=== PATIENT | male | born 1940 | race Caucasian/White ===

== ENCOUNTER 2017-06-23 06:50 | Outpatient (CLI) | payer MEDICARE | END 2017-06-23 06:51 | disposition home or self-care (01) | LOC: BICULT 06:50 | PROVIDERS: ATTEND Internal Medicine Gastroenterology | DX: R11.2 Nausea with vomiting, unspecified (principal) | CPT/HCPCS: 76700 ==

== ENCOUNTER 2017-07-12 07:37 | Outpatient (CLI) | payer MEDICARE ==
[2017-07-12] MEDS ORDERED: ISOVUE-370 76%-LOCM 1 ML ONE (14:46)
== END 2017-07-12 07:38 | disposition home or self-care (01) ==
LOC: BICCT 07:37
PROVIDERS: ATTEND Internal Medicine Gastroenterology
DX: R05 Cough (principal); R11.2 Nausea with vomiting, unspecified; R63.4 Abnormal weight loss; R91.8 Other nonspecific abnormal finding of lung field; D73.89 Other diseases of spleen
CPT/HCPCS: 71260; 74177

== ENCOUNTER 2017-08-03 08:30 | Outpatient (CLI) | payer MEDICARE ==
--- NOTE | 2017-08-05 16:44 | RAD ---
MODIFIED BARIUM SWALLOW IN THE PRESENCE OF SPEECH THERAPIST: 08/05/17 History: Feeding difficulties.Dysphagia FINDINGS/IMPRESSION: Flash laryngeal penetration is seen with thin liquids. No betsey aspiration is identified. No persiste nt pooling of contrast is seen in the vallecula or the piriform sinuses. POS: [facility]
== END 2017-08-03 08:31 | disposition home or self-care (01) ==
PROVIDERS: ATTEND Internal Medicine
DX: J69.0 Pneumonitis due to inhalation of food and vomit (principal); R13.12 Dysphagia, oropharyngeal phase; R63.3 Feeding difficulties; I63.8 Other cerebral infarction; K21.9 Gastro-esophageal reflux disease without esophagitis
CPT/HCPCS: 74230; G8996-GN-CI; G8997-GN-CI; G8998-GN-CI

== ENCOUNTER → 2017-09-19 | Outpatient (CLI) | payer MEDICARE | LOC: SLEEPLAB 10:49 | PROVIDERS: ATTEND Internal Medicine | DX: G47.33 Obstructive sleep apnea (adult) (pediatric) (principal); R09.02 Hypoxemia; K21.9 Gastro-esophageal reflux disease without esophagitis; E66.9 Obesity, unspecified; R35.1 Nocturia; I63.9 Cerebral infarction, unspecified; I10 Essential (primary) hypertension; G45.9 Transient cerebral ischemic attack, unspecified; Z68.29 Body mass index [BMI] 29.0-29.9, adult | CPT/HCPCS: 95806 ==

== ENCOUNTER 2018-03-07 09:22 | Inpatient (IN) | payer MEDICARE ==
[2018-03-07] MEDS ORDERED: Dexamethasone 10 MG/ML VIAL ONE (09:57)
[2018-03-07] MEDS ORDERED: Ondansetron PF 4 MG/2 ML Vial ONE (09:57)
[2018-03-07] MEDS ORDERED: Cefepime 2 GM in Sodium Chloride 0.9% 100 ML IVPB SCH (10:00)
[2018-03-07 10:13] LABS: Hemoglobin 13.9 g/dL (14.0-18.0); Mean Corpuscular HGB CONC 33.3 g/dL (32.0-36.0); Mean Corpuscular Hemoglobin 30.4 pg (27.0-31.0); Mean Corpuscular Volume 91.2 fL (78.0-98.0); Mean Platelet Volume 7.6 fL (7.4-10.4); Platelet Count 186 thou/uL (130-400); RBC Distribution Width 13.5 % (11.5-14.5); Red Blood Cell (RBC) Count 4.56 mill/uL (4.70-6.10); White Blood Cell (WBC) Count 11.1 thou/uL (4.8-10.8)
--- NOTE | 2018-03-07 10:20 | RAD ---
FRONTAL RADIOGRAPH CHEST: 03/07/2018 HISTORY: Dyspnea. Fall. Altered mental status. COMPARISON: 06/28/2016 FINDINGS: There is a focal area of density within the medial aspect of the right lung base. This is new when c ompared to prior CT examination performed 07/12/2017 and prior chest radiograph performed 06/28/2016. This abnormality measures at least 6 cm in greatest dimension. There is no pneumothorax or pleural fluid. IMPRESSION: 1. Hazy, focal, 6 cm area of abnormal increased pulmonary parenchymal opacity in the medial right todd ng base. In the proper clinical setting, this is most consistent with infectious pneumonitis or aspi ration; however, an underlying mass lesion cannot be fully excluded. Clinical correlation is thus es sential. Recommend short-term follow-up imaging of the chest, following treatment, to document resol ution. If this opacity persists despite treatment, CT examination of the chest would be advised. CODE T
[2018-03-07 10:30] LABS: ALT (SGPT) 26 U/L (8-55); AST (SGOT) 36 U/L (5-34); Albumin 3.8 g/dL (3.4-4.8); Alkaline Phosphatase 57 U/L (40-150); Anion Gap 17 mmol/L (10-20); BUN (Urea Nitrogen) 18 mg/dL (8.4-25.7); Bilirubin, Total 1.1 mg/dL (0.2-1.2); CK (CPK) 379 U/L (30-200); Calc. Creatinine Clearance 0 mL/min (70-130); Calcium 9.2 mg/dL (7.8-10.44); Carbon Dioxide 18 mmol/L (23-31); Chloride 107 mmol/L (98-107); Estimated GFR-MDRD 51; Globulin 3.4 g/dL (2.4-3.5); Glucose 154 mg/dL (83-110); Potassium 4.1 mmol/L (3.5-5.1); Protein, Total 7.2 g/dL (5.8-8.1); Sodium 138 mmol/L (136-145)
[2018-03-07 10:46] LABS: Band 33 % (5-11); Lymphocytes 7 % (21-51); MDiff Complete? YES; Monocytes 4 % (0-10); Neutrophil 55 % (42-75); PLT Morphology Comment Appears Adequate; Reactive Lymphocytes 1 % (0-10); Toxic Granulation SLIGHT
--- NOTE | 2018-03-07 10:56 | PDOC.FPRHP ---
- History of Present Illness Chief Complaint: malaise History of Present Illness: 77yo m with pmh of htn presenting from home on encouragement from his family for evaluation of AMS. Family member reported finding pt on the floor of the hallway and that he was unable to get himself up out of bed. He is unsure of if the pt fell or struck his head. Pt did not report this part of hpi. Pt only complains of increasing malaise and cough over the last 3 weeks. Reports he went hunting on Tuesday despite feeling bad but then decided to go to [facility] urgent care on tuesday where he was told it was asthma. Pt did not improve with steroid shot. Pt denies fever or chills, denies cp. ED Course: Pt sirs positive on presentation. Given 2.5L IVF in ER and s/p vanc and cefepime. - Allergies/Adverse Reactions Allergies Allergy/AdvReac Type Severity Reaction Status Date / Time No Known Allergies Allergy Unverified 03/07/18 09:56 - History PMHx: HTN, HLD, CAD, testicular cancer s/p orchiectomy and radiation years ago PSHx: Orchiectomy, appendectomy FHx: non contributory Social: Denies Tobacco and drugs. Endorses social drinking. - Review of Systems General: reports: fatigue. denies: fever/chills Eyes: denies: eye pain, vision changes ENT: reports: nasal congestion. denies: rhinorrhea Respiratory: reports: cough, congestion Cardiovascular: denies: chest pain, palpitation Gastrointestinal: denies: nausea, vomiting Genitourinary: denies: dysuria, discharge Skin: denies: rashes, lesions Musculoskeletal: denies: pain, tenderness Neurological: reports: weakness. denies: numbness Psychological: denies: anxiety, depression - Vital signs BP: [135/61] HR: [108] RR: [29] Tmax: [103.1] Pox: [98]% on [ra] - Physical Exam Constitutional: NAD, awake, alert and oriented HEENT: EOMI, conjunctiva clear, grossly normal vision, grossly normal hearing, normal nasal mucosa, MMM Neck: supple, trachea midline Chest: no-tender to palpation Heart: normal S1/S2, other (tachycardic) -Heart: warm extremeties Lungs: no respiratory distress, other (diffuse expiratory wheezing) Abdomen: soft, non-tender, bowel sounds present Musculoskeletal: normal structure, normal tone Neurological: no focal deficit, CN II-XII intact, normal sensation Skin: no rash/lesions, good turgor Heme/Lymphatic: no unusual bruising or bleeding, no purpura Psychiatric: normal mood and affect, other (moderate judgment/insight) FMR H&P: Results - Labs Result Diagrams: 03/07/18 09:53 03/07/18 09:53 Lab results: WBC 11.1 thou/uL (4.8-10.8) H 03/07/18 09:53 Hgb 13.9 g/dL (14.0-18.0) L 03/07/18 09:53 Hct 41.6 % (42.0-52.0) L 03/07/18 09:53 MCV 91.2 fL (78.0-98.0) 03/07/18 09:53 Plt Count 186 thou/uL (130-400) 03/07/18 09:53 Band Neuts % (Manual) 33 % (5-11) H 03/07/18 09:53 Sodium 138 mmol/L (136-145) 03/07/18 09:53 Potassium 4.1 mmol/L (3.5-5.1) 03/07/18 09:53 Chloride 107 mmol/L (98-107) 03/07/18 09:53 Carbon Dioxide 18 mmol/L (23-31) L 03/07/18 09:53 BUN 18 mg/dL (8.4-25.7) 03/07/18 09:53 Creatinine 1.35 mg/dL (0.7-1.3) H 03/07/18 09:53 Glucose 154 mg/dL (83-110) H 03/07/18 09:53 Lactic Acid 3.3 mmol/L (0.5-2.2) H 03/07/18 09:53 Calcium 9.2 mg/dL (7.8-10.44) 03/07/18 09:53 Total Bilirubin 1.1 mg/dL (0.2-1.2) 03/07/18 09:53 AST 36 U/L (5-34) H 03/07/18 09:53 ALT 26 U/L (8-55) 03/07/18 09:53 Alkaline Phosphatase 57 U/L (40-150) 03/07/18 09:53 Creatine Kinase 379 U/L (30-200) H 03/07/18 09:53 Serum Total Protein 7.2 g/dL (5.8-8.1) 03/07/18 09:53 Albumin 3.8 g/dL (3.4-4.8) 03/07/18 09:53 FMR H&P: A/P - Problem List (1) Sepsis due to pneumonia Current Visit: Yes Status: Acute Code(s): J18.9 - PNEUMONIA, UNSPECIFIED ORGANISM; A41.9 - SEPSIS, UNSPECIFIED ORGANISM (2) Lactic acid acidosis Current Visit: Yes Status: Acute Code(s): E87.2 - ACIDOSIS (3) HTN (hypertension) Current Visit: Yes Status: Acute Code(s): I10 - ESSENTIAL (PRIMARY) HYPERTENSION (4) HLD (hyperlipidemia) Current Visit: Yes Status: Acute Code(s): E78.5 - HYPERLIPIDEMIA, UNSPECIFIED - Plan 77yo M presents with Sepsis 2/2 CAP Sepsis 2/2 to CAP A- Pt is s/p 2.5L IVF in ED and cefepime and vanc. Influenza is negative. CXR shows R medial lung pnuemonia P- Admit to inpt tele -start rocephin and azithromycin -LR 150ml/hr -f/u procal -f/u BCx and UCx Possible syncope A- Pt was found down at house but was conscious. Likely 2/2 sepsis. Pt has normal neuro exam. Head CT pending. P- f/u on head CT Lactic Acidosis A- Likely secondary to sepsis P- will trend DOMINIC A- Unknown baseline P- give pt IVF as above and recheck BMP tomorrow HTN -hold home meds for now CAD - Continue home clopidogrel HLD - Continue Statin IVF: LR 150/hr Code: full Dispo: at least 2 midnights. FMR H&P: Upper Level - Pertinent history 77 yo male seen at bedside this AM. Patient states he has been sick for a couple of weeks. He was recently seen by [facility] ED and told he had an asthma exacerbation. He then went hunting this weekend and began to feel worse. He is somewhat unreliable of a historian due to his AMS. However, he is A&Ox3 and normally can function independently per his son. Patient's son states that he was altered and was found on the floor this AM with some blood coming from his forearm. Patient's son is unaware of mechanism of injury. He then brought him in today for evaluation. He states normally he functions totally independently and even "just bought a new truck last week." Physical Exam: General: Male appearing stated age, NAD Vitals: 96/47, Temp 103.1, Pulse 107, O2 97% on Room Air CV: tachycardic rate, regular rhythm Respiratory: Crackles to Right base. Expiratory wheezing present throughout Abdomen: Soft, nontender, no distention Extremities: No edema, pulses equal bilaterally Neuro: CN 2 -12 grossly intact, no focal deficits. - Plan Date/Time: 03/07/18 1055 I, Dayo Fofana MD, have evaluated this patient and agree with findings/ plan as outlined by geotechnical intern resident. Pertinent changes/additions are listed here. 1. Sepsis 2/2 to CAP - Will transition to CAP coverage. Ceftriaxone and Azithromycin. - s/p 2.5L NS in ED, will continue IVF above maintenance - Procalcitonin pending - Blood and urine cultures pending - Influenza negative - Consider repeat CXR in near future 2. Lactic Acidosis - Secondary to above - Will recheck 3. DOMINIC - Unknown baseline - Will treat with IVF - Recheck BMP 4. HTN - Currently hypotensive - Aggressive IVF - Hold home BP meds 5. CAD - Continue home clopidogrel 6. HLD - Continue Statin Disposition: Stable, will admit to inpatient telemetry services.
--- NOTE | 2018-03-07 11:19 | CT ---
CT BRAIN WITHOUT CONTRAST: INDICATIONS: History of altered mental status. COMPARISON: Prior exam dated 11/03/2010. FINDINGS: No acute infarct, hemorrhage, or hydrocephalus is present. The septum pellucidum and third ventricle are midline. The skull and extracranial soft tissues are unremarkable appearing. There is mild muc osal thickening of the ethmoid air cells and maxillary sinuses. There are calcifications involving t he intracranial arteries. IMPRESSION: 1. No acute intracranial abnormality. 2. Mild paranasal sinus disease. POS: [facility]
[2018-03-07] MEDS ORDERED: Acetaminophen 325 MG TAB ONE (13:09)
[2018-03-07 13:42] LABS: Bilirubin Negative (Negative); Blood, Urine Negative (Negative); Clarity CLEAR (Clear); Glucose, Urine (Dipstick) Negative (Negative); Leukocyte Negative (Negative); Nitrite Negative (Negative); Protein, Urine (Dipstick) 30 mg/dL (Neg-Trace); Specific Gravity, Urine 1.013 (1.002-1.036)
[2018-03-07 13:44] LABS: Pathc Cast-AUWi Flag 1.01 (0-2.49)
[2018-03-07 14:09] LABS: RBC/HPF None Seen HPF (0-3); Squamous Epithelial None Seen HPF (0-3); WBC/HPF None Seen HPF (0-3)
[2018-03-07 14:10] LABS: Bacteria/HPF Rare-Few HPF (None Seen)
[2018-03-07 14:27] LABS: Lactic Acid 3.2 mmol/L (0.5-2.2)
[2018-03-07] MEDS ORDERED: Ondansetron PF 4 MG/2 ML Vial IVP PRN (17:04)
[2018-03-07] MEDS ORDERED: Acetaminophen 325 MG TAB PO PRN (17:04)
[2018-03-07] MEDS ORDERED: Ondansetron ODT 4 MG TAB PO PRN (17:04)
[2018-03-07 17:08] VITALS: BMI 29.9
[2018-03-07] MEDS: cefTRIAXone\\ROCEPHIN 1 GM in Sodium Chloride 0.9% 100 ML IVPB SCH (18:11)
[2018-03-07] MEDS: Lactated Ringer's 1,000 ML IV SCH ×2 (18:11→23:38)
[2018-03-07] MEDS: Azithromycin 500 MG in Sodium Chloride 0.9% 250 ML 250 ML IVPB SCH (20:16)
[2018-03-07] MEDS: Famotidine 20 MG TAB PO SCH (20:19)
[2018-03-07 21:37] LABS: Lactic Acid 4.5 mmol/L (0.5-2.2)
[2018-03-08] MEDS: Lactated Ringer's 1,000 ML IV SCH ×3 (05:33→20:48)
--- NOTE | 2018-03-08 05:45 | PDOC.FM ---
- Subjective Subjective: Pleasant 77 yo male seen at bedside this morning. He states that he feels drastically better. He states that he has more energy and doesn't feel as weak. He states that he could have been more comfortable last night at home, but was thankful for the care he received. He states that he had no other acute problems overnight. He denies n/v/d, fever, chills, or chest pain. No other complaints. - Objective MAR Reviewed: Yes Vital Signs & Weight: Vital Signs (12 hours) Temp Pulse Resp BP Pulse Ox 03/08/18 02:15 99 18 93 L 03/08/18 00:40 98.9 F 95 18 109/64 90 L 03/07/18 22:46 92 20 92 L 03/07/18 19:15 88 18 94 L Weight Weight 100.244 kg I&O: 03/06/18 03/07/18 03/08/18 06:59 06:59 06:59 Intake Total 1465 Output Total 600 Balance 865 Result Diagrams: 03/08/18 05:38 03/08/18 05:38 Phys Exam - Physical Examination HEENT: moist MMs Neck: no nodes, supple Respiratory: wheezing present Expiratory wheezing present. Improved from yesterday. Cardiovascular: RRR, no significant murmur Gastrointestinal: soft, non-tender, no distention, positive bowel sounds Musculoskeletal: no edema, pulses present Neurological: non-focal, normal sensation, moves all 4 limbs Psychiatric: normal affect, A&O x 3 Skin: no rash, cap refill <2 seconds Dx/Plan (1) Sepsis due to pneumonia Code(s): J18.9 - PNEUMONIA, UNSPECIFIED ORGANISM; A41.9 - SEPSIS, UNSPECIFIED ORGANISM Status: Acute (2) Lactic acid acidosis Code(s): E87.2 - ACIDOSIS Status: Acute (3) HTN (hypertension) Code(s): I10 - ESSENTIAL (PRIMARY) HYPERTENSION Status: Acute (4) HLD (hyperlipidemia) Code(s): E78.5 - HYPERLIPIDEMIA, UNSPECIFIED Status: Acute (5) Elevated brain natriuretic peptide (BNP) level Code(s): R79.89 - OTHER SPECIFIED ABNORMAL FINDINGS OF BLOOD CHEMISTRY Status : Acute (6) CAD (coronary artery disease) Code(s): I25.10 - ATHSCL HEART DISEASE OF [place] CORONARY ARTERY W/O ANG PCTRS Status: Acute - Plan Plan: Sepsis 2/2 to CAP - Will transition to CAP coverage. Ceftriaxone and Azithromycin. - s/p 3.5L NS in ED, will continue IVF @ LR 150 ml/hr - Procalcitonin 3.4 on admission - Blood culture 1/2 MSSA likely contaminant - Influenza negative - Consider repeat CXR in near future - Lung exam improved from yesterday Lactic Acidosis - Secondary to above - Persistently elevated - Will recheck DOMINIC - Likely resolved - Unknown baseline - Will treat with IVF and discontinue when appropriate Elevated BNP - No reported CHF history - Will order ECHO HTN - Currently hypotensive - Aggressive IVF - Hold home BP meds CAD - Continue home clopidogrel HLD - Continue Statin Disposition: Stable, will continue current plan of care. Addendum - Attending - Attending Attestation Date/Time: 03/08/18 1002 I personally evaluated the patient and discussed the management with Dr. Fofana. I agree with the History, Examination, Assessment and Plan documented above with any addition or exceptions noted below. Clinically, patient looks well and he reports significant improvement this morning. He is currently being treated for presumed CAP, but his blood cultures are now resulting with what appears to be staph, 2/2 cx positive. Will expand abx coverage to include vanc for now. He has persistent elevation in lactic acid , though he has no current evidence of metabolic acidosis. No increased oxygen requirement. Echo pending to r/o vegetation, and we may need to initiate workup to see why he is bacteremic with staph. Consider CT chest if no major improvement through the day. Continue fluid hydration. Renal function improved.
[2018-03-08 06:41] LABS: Hemoglobin 11.2 g/dL (14.0-18.0); Mean Corpuscular HGB CONC 33.5 g/dL (32.0-36.0); Mean Corpuscular Hemoglobin 30.7 pg (27.0-31.0); Mean Corpuscular Volume 91.6 fL (78.0-98.0); Mean Platelet Volume 7.8 fL (7.4-10.4); Platelet Count 142 thou/uL (130-400); RBC Distribution Width 13.6 % (11.5-14.5); Red Blood Cell (RBC) Count 3.65 mill/uL (4.70-6.10); White Blood Cell (WBC) Count 13.3 thou/uL (4.8-10.8)
[2018-03-08 06:46] LABS: Anion Gap 13 mmol/L (10-20); BUN (Urea Nitrogen) 20 mg/dL (8.4-25.7); Calc. Creatinine Clearance 90 mL/min (70-130); Calcium 8.2 mg/dL (7.8-10.44); Carbon Dioxide 20 mmol/L (23-31); Chloride 109 mmol/L (98-107); Estimated GFR-MDRD 75; Glucose 139 mg/dL (83-110); Potassium 3.7 mmol/L (3.5-5.1); Sodium 138 mmol/L (136-145)
[2018-03-08 07:47] LABS: Band 45 % (5-11); Lymphocytes 1 % (21-51); MDiff Complete? YES; Monocytes 9 % (0-10); Neutrophil 44 % (42-75); PLT Morphology Comment Appears Adequate; Polychromasia SLIGHT = 2-3 cells (100X) (0-2/hpf); Reactive Lymphocytes 1 % (0-10)
[2018-03-08] MEDS: Famotidine 20 MG TAB PO SCH ×2 (08:10→20:52)
[2018-03-08] MEDS: Enoxaparin Sodium 40 MG/0.4 ML SYRINGE SC SCH (08:10)
[2018-03-08] MEDS: Vancomycin HCl 1 GM in Premix Bag 1 BAG IVPB SCH (11:57)
[2018-03-08] MEDS ORDERED: Chloraseptic Spray 180 ml Bottle PO PRN (12:08)
--- NOTE | 2018-03-08 12:11 | PDOC.EVN ---
Event Note - Event Note Event Note: Received call from nurse regarding respiratory status of patient. I went to evaluate the patient. Upon entering the room, the patient was breathing comfortably and appeared in no acute distress. His daughter and responsible nurse was present. Per nursing staff, he has the most amount of tachypnea and dyspnea upon exertion. Patient had O2 Saturation in 90s, normal pulse, and BP. He still had audible wheezes present on exam, unchanged from prior exam earlier in the day. Patient was counseled to take it easy due to the severity of his illness. Patient was also counseled on the new finding of bacteremia. Patient will continue to be monitored closely by nursing staff and any concerns will be relayed to primary team. Also prescribing Florastor and Chloraseptic spray for symptom relief. Will make any treatment changes as necessary. Encouraged to contact the nurse or the primary team for any other concerns or questions.
--- NOTE | 2018-03-08 12:31 | EKG ---
Test Reason : SEPSIS Blood Pressure : / mmHG Vent. Rate : 106 BPM Atrial Rate : 106 BPM P-R Int : 132 ms QRS Dur : 074 ms QT Int : 322 ms P-R-T Axes : 060 -28 091 degrees QTc Int : 427 ms Sinus tachycardia Nonspecific ST and T wave abnormality Left axis deviation Abnormal ECG Confirmed by NATACHA ALARCON, KELLEY ([id number]), newspaper editor DENISE BERMAN ([id number]) on 03/08/2018 12:30:26 PM Referred By: ELIUD MANZANO Confirmed By:KELLEY MANZANO MD
[2018-03-08] MEDS: cefTRIAXone\\ROCEPHIN 1 GM in Sodium Chloride 0.9% 100 ML IVPB SCH (17:38)
[2018-03-08] MEDS: Azithromycin 500 MG in Sodium Chloride 0.9% 250 ML 250 ML IVPB SCH (20:48)
[2018-03-08] MEDS: Pravastatin Sodium 40 MG TAB PO SCH (20:52)
[2018-03-08] MEDS ORDERED: Clopidogrel Bisulfate 75 MG TAB PO SCH (21:00)
[2018-03-09] MEDS: Vancomycin HCl 1 GM in Premix Bag 1 BAG IVPB SCH ×3 (01:08→23:42)
[2018-03-09] MEDS: Lactated Ringer's 1,000 ML IV SCH ×4 (01:09→23:25)
[2018-03-09] MEDS ORDERED: Diltiazem 125 MG in Sodium Chloride 0.9% 100 ML IVPB SCH ×3 (04:00→07:00)
--- NOTE | 2018-03-09 04:17 | PDOC.EVN ---
Event Note - Event Note Event Note: Received page from nursing that pt was tachycardic. They obtained an EKG and he was found to be in afib with RVR with rates in the 130s-150s. I evaluated pt and he was asymptomatic and VSS otherwise. We transferred him to [facility], ordered a Cardizem bolus and a Cardizem drip. We will reassess once the medication has had a chance to work.
--- NOTE | 2018-03-09 06:04 | PDOC.FM ---
- Subjective Subjective: 77 yo male seen at bedside this AM. Patient states he feels better overall. He has had A-fib with RVR overnight where he feels a little short winded. Patient states he does not feel palpitations or chest pain. Patient states his energy has improved. He really has no other complaints. - Objective Vital Signs & Weight: Vital Signs (12 hours) Temp Pulse Resp BP Pulse Ox 03/09/18 04:07 98.3 F 124 H 20 138/81 92 L 03/09/18 04:05 92 L 03/09/18 01:36 138 H 18 91 L 03/09/18 00:08 98.3 F 96 20 111/66 96 03/08/18 22:49 159 H 18 90 L 03/08/18 20:42 98.3 F 90 20 136/76 93 L 03/08/18 20:24 88 18 94 L Weight Weight 100.244 kg I&O: 03/07/18 03/08/18 03/09/18 06:59 06:59 06:59 Intake Total 1465 387.2 Output Total 600 300 Balance 865 87.2 Result Diagrams: 03/09/18 06:05 03/08/18 05:38 Phys Exam - Physical Examination Constitutional: NAD HEENT: moist MMs Neck: no nodes Respiratory: wheezing present Expiratory wheezing present. Cardiovascular: no significant murmur, irregular Tachycardic rate Gastrointestinal: soft, non-tender, no distention, positive bowel sounds Musculoskeletal: no edema, pulses present Neurological: non-focal, normal sensation, moves all 4 limbs Psychiatric: normal affect, A&O x 3 Skin: no rash Dx/Plan (1) Sepsis due to pneumonia Code(s): J18.9 - PNEUMONIA, UNSPECIFIED ORGANISM; A41.9 - SEPSIS, UNSPECIFIED ORGANISM Status: Acute (2) Atrial fibrillation with RVR Code(s): I48.91 - UNSPECIFIED ATRIAL FIBRILLATION Status: Acute (3) Lactic acid acidosis Code(s): E87.2 - ACIDOSIS Status: Acute (4) HTN (hypertension) Code(s): I10 - ESSENTIAL (PRIMARY) HYPERTENSION Status: Acute (5) HLD (hyperlipidemia) Code(s): E78.5 - HYPERLIPIDEMIA, UNSPECIFIED Status: Acute (6) Elevated brain natriuretic peptide (BNP) level Code(s): R79.89 - OTHER SPECIFIED ABNORMAL FINDINGS OF BLOOD CHEMISTRY Status : Acute (7) CAD (coronary artery disease) Code(s): I25.10 - ATHSCL HEART DISEASE OF [place] CORONARY ARTERY W/O ANG PCTRS Status: Acute - Plan Plan: Sepsis 2/2 to CAP - Will transition to CAP coverage. Ceftriaxone and Azithromycin. - s/p 3.5L NS in ED, will continue IVF @ LR 150 ml/hr - Procalcitonin 3.4 on admission - Coagulase negative staph in blood cultures, will confirm findings with lab. - Influenza negative - Repeat CXR today - Lung exam improved from yesterday - Repeat Procalcitonin 5.53, elevated from previous. A-fib with RVR - Transferred to Tele this AM - Started on Cardizem bolus and drip - HR consistently above 130 - Drip currently at 10, will increase to 15 - Will consult Cardiology due to new onset A-fib Lactic Acidosis - Secondary to above - Persistently elevated - Recheck this AM is 1.5 DOMINIC - Likely resolved - Unknown baseline - Will treat with IVF and discontinue when appropriate - Repeat BMP pending Elevated BNP - No reported CHF history - ECHO showed EF 55-60%, Grade 1/3 Diastolic dysfunction. HTN - Currently hypotensive - Aggressive IVF - Hold home BP meds CAD - Continue home clopidogrel HLD - Continue Statin Disposition: Stable, will continue current plan of care. Addendum - Attending - Attending Attestation Date/Time: 03/09/18 0908 I personally evaluated the patient and discussed the management with Dr. Fofana. I agree with the History, Examination, Assessment and Plan documented above with any addition or exceptions noted below. Patient feeling well this morning, but did have new onset Afib with RVR overnight. He is currently on Diltiazem drip on telemetry monitoring. Not controlled on 10/hour, will increase to 15. Consult cardiology. Echo already obtained which was overtly normal but did show some L atrial enlargement. He continues on expanded abx coverage for possible pneumonia but also possible Staph bactermia based on initial blood cultures, lab is currently clarifying. His WBC is downtrending and he is afebrile, but PCT uptrending. Repeat CXR today , consider ID consult if truly staph bacteremia. Anticipate he will need several more days hospitalization. Fortunately, he is feeling significantly improved.
[2018-03-09 06:42] LABS: Lactic Acid 1.5 mmol/L (0.5-2.2)
[2018-03-09 07:12] LABS: Band 30 % (5-11); Hemoglobin 11.8 g/dL (14.0-18.0); Lymphocytes 9 % (21-51); MDiff Complete? YES; Mean Corpuscular HGB CONC 33.4 g/dL (32.0-36.0); Mean Corpuscular Hemoglobin 30.2 pg (27.0-31.0); Mean Corpuscular Volume 90.5 fL (78.0-98.0); Mean Platelet Volume 7.8 fL (7.4-10.4); Monocytes 3 % (0-10); Myelocyte 1 % (0-0); Neutrophil 56 % (42-75); Platelet Count 145 thou/uL (130-400); RBC Distribution Width 13.6 % (11.5-14.5); RBC Morphology Normal; Reactive Lymphocytes 1 % (0-10); Red Blood Cell (RBC) Count 3.89 mill/uL (4.70-6.10); White Blood Cell (WBC) Count 10.9 thou/uL (4.8-10.8)
[2018-03-09] MEDS: Enoxaparin Sodium 40 MG/0.4 ML SYRINGE SC SCH (09:02)
[2018-03-09] MEDS: Saccharomyces boulardii 250 MG CAP PO SCH (09:02)
[2018-03-09] MEDS: Famotidine 20 MG TAB PO SCH ×2 (09:02→20:05)
[2018-03-09] MEDS ORDERED: Enoxaparin Sodium 60 MG/0.6 ML SYRINGE SC SCH (09:30)
[2018-03-09 10:34] LABS: ALT (SGPT) 19 U/L (8-55); AST (SGOT) 18 U/L (5-34); Albumin 2.9 g/dL (3.4-4.8); Alkaline Phosphatase 49 U/L (40-150); Bilirubin, Direct 0.3 mg/dL (0.1-0.3); Bilirubin, Total 0.5 mg/dL (0.2-1.2); Magnesium 1.9 mg/dL (1.6-2.6); Protein, Total 5.4 g/dL (5.8-8.1)
[2018-03-09] MEDS: Amiodarone 450 MG in Dextrose 5% in Water 250 ML IVPB SCH ×2 (10:49→16:05)
--- NOTE | 2018-03-09 12:23 | RAD ---
PA AND LATERAL VIEWS OF CHEST: Date: 03/09/18 HISTORY: Pneumonia. FINDINGS: Comparison made with exam of 03/07/18. There is interval improvement in the right basilar infiltrate since the previous study without comple te resolution. No pneumothoraces or large effusions are seen. IMPRESSION: Resolving right basilar pneumonia. POS: [facility]
[2018-03-09] MEDS ORDERED: Ipratropium Oral Inhaler (200 INHALATIONS) INH PRN (14:23)
[2018-03-09] MEDS ORDERED: Polyethylene Glycol 3350 17 GM Packet PO PRN (17:30)
[2018-03-09] MEDS ORDERED: Sodium Chloride 0.9% 10 ML ONE (18:17)
[2018-03-09] MEDS: cefTRIAXone\\ROCEPHIN 1 GM in Sodium Chloride 0.9% 100 ML IVPB SCH (18:32)
[2018-03-09] MEDS: Azithromycin 500 MG in Sodium Chloride 0.9% 250 ML 250 ML IVPB SCH (20:05)
[2018-03-09] MEDS: Pravastatin Sodium 40 MG TAB PO SCH (20:05)
[2018-03-09] MEDS: Enoxaparin Sodium 100 MG/ML SYRINGE SC SCH (20:05)
[2018-03-09 23:29] LABS: Vancomycin, Trough 9.6 ug/mL
[2018-03-10] MEDS: Lactated Ringer's 1,000 ML IV SCH (02:38)
[2018-03-10] MEDS: Benzonatate 100 MG CAP PO PRN ×2 (02:38→21:06)
[2018-03-10] MEDS: Amiodarone 450 MG in Dextrose 5% in Water 250 ML IVPB SCH (02:39)
--- NOTE | 2018-03-10 03:16 | CON ---
DATE OF CONSULTATION: 03/09/2018 TYPE OF CONSULTATION: Cardiology. REASON FOR CONSULTATION: Atrial fibrillation with RVR. HISTORY OF PRESENT ILLNESS: Mr. Magana is a very pleasant 77-year-old white gentleman, who comes to the hospital for altered mentation. He was diagnosed with sepsis secondary to community-acquired pneumonia and has positive blood cultures already. He has been on antibiotics and his altered mentation has already improved. Overnight, he went into atrial fibrillation. He was started on diltiazem drip and Cardiology is being consulted for this. He has never been told he was in atrial fibrillation in the past. He is currently not ideally rate controlled. He denies any palpitations. No syncope or presyncope. PAST MEDICAL HISTORY: 1. Hypertension. 2. Hyperlipidemia. 3. CAD. 4. Testicular cancer, status post orchiectomy. 5. Status post radiation several years ago. 6. History of CVA. PAST SURGICAL HISTORY: 1. Orchiectomy. 2. Appendectomy. FAMILY HISTORY: No early coronary artery disease. SOCIAL HISTORY: No alcohol, tobacco, or drugs. Social drinking. REVIEW OF SYSTEMS: A 12-point review of system was done and was found to be negative unless stated in the history of present illness. OUTPATIENT MEDICATIONS: Include: 1. Pravastatin. 2. Losartan. 3. Clopidogrel for stroke in the past. 4. Norvasc. 5. Albuterol inhaler. 6. Valium. 7. Zofran. ALLERGIES: NO KNOWN DRUG ALLERGIES. PHYSICAL EXAMINATION: VITAL SIGNS: Temperature 99.1, pulse 108, respiratory rate 24, saturating 94% on 2 L. Blood pressure 132/71. GENERAL: Awake, alert, and oriented x3, in no distress. HEENT: Normocephalic, atraumatic. NECK: Supple. LUNGS: Clear. CARDIOVASCULAR: Irregularly irregular, heart rate in the 120s. No murmurs, no rubs. ABDOMEN: Soft. Positive bowel sounds. EXTREMITIES: No edema. SKIN: Warm and dry. LABORATORY DATA: Laboratory work was reviewed. White count of 10.9, hemoglobin 11.8, hematocrit 35, platelet count of 145. Chemistries reviewed. Lactic acid was 12.5 on admission. Normal potassium. Magnesium was 1.9, total protein of 5.9 with albumin of 2.9. TSH was normal. UA was unremarkable. Echocardiogram done yesterday showed an EF of 55% to 60% and a grade 1 to 3 diastolic dysfunction and was in sinus rhythm at that time, mildly dilated left atrium. Chest x-ray showed right basilar pneumonia. ASSESSMENT AND PLAN: 1. Atrial fibrillation with rapid ventricular response. 2. Community-acquired pneumonia. 3. History of cerebrovascular accident. 4. Bacteremia with coag-negative staph. PLAN: 1. We will switch diltiazem to IV amiodarone as he is already maxed out on diltiazem and he is not adequeatly rate control. We recommend full anticoagulation for now for stroke prophylaxis. 2. If he does not convert on his own in the next 2 days with antibiotics, he may need a NAKUL cardioversion. However, at this point, we will just rate control as this is most likely related to being septic. Thank you for letting me to participate in the care of your patient. We will continue to follow. Job ID: [id number]
[2018-03-10] MEDS: guaiFENesin 200 MG TAB PO PRN ×2 (04:01→21:06)
--- NOTE | 2018-03-10 06:06 | PDOC.FM ---
- Subjective Subjective: 77 year old male seen at bedside this AM. Patient feels much improved from yesterday. He states that he is ready to go home this morning. Patient states that he has no chest pain, SOB, n/v/d, or fevers. Patient states that his energy is improved as well. No other complaints. - Objective MAR Reviewed: Yes Vital Signs & Weight: Vital Signs (12 hours) Temp Pulse Resp BP Pulse Ox 03/10/18 03:52 96 03/10/18 02:52 100.1 F H 72 89 L 03/09/18 23:55 20 125/82 03/09/18 22:42 95 03/09/18 20:00 99.7 F H 86 18 124/60 95 03/09/18 18:56 95 03/09/18 18:55 95 Weight Weight 103.737 kg I&O: 03/08/18 03/09/18 03/10/18 06:59 06:59 06:59 Intake Total 1465 387.2 Output Total 600 300 300 Balance 865 87.2 -300 Result Diagrams: 03/10/18 05:50 03/08/18 05:38 Phys Exam - Physical Examination Constitutional: NAD HEENT: moist MMs Neck: supple, full ROM Respiratory: wheezing present expiratory wheezing present. Cardiovascular: RRR, no significant murmur Gastrointestinal: soft, non-tender, no distention, positive bowel sounds Musculoskeletal: no edema, pulses present Neurological: normal sensation, moves all 4 limbs Psychiatric: A&O x 3 Skin: no rash Dx/Plan (1) Sepsis due to pneumonia Code(s): J18.9 - PNEUMONIA, UNSPECIFIED ORGANISM; A41.9 - SEPSIS, UNSPECIFIED ORGANISM Status: Acute (2) Atrial fibrillation with RVR Code(s): I48.91 - UNSPECIFIED ATRIAL FIBRILLATION Status: Acute (3) Lactic acid acidosis Code(s): E87.2 - ACIDOSIS Status: Acute (4) HTN (hypertension) Code(s): I10 - ESSENTIAL (PRIMARY) HYPERTENSION Status: Acute (5) HLD (hyperlipidemia) Code(s): E78.5 - HYPERLIPIDEMIA, UNSPECIFIED Status: Acute (6) Elevated brain natriuretic peptide (BNP) level Code(s): R79.89 - OTHER SPECIFIED ABNORMAL FINDINGS OF BLOOD CHEMISTRY Status : Acute (7) CAD (coronary artery disease) Code(s): I25.10 - ATHSCL HEART DISEASE OF [place] CORONARY ARTERY W/O ANG PCTRS Status: Acute - Plan Plan: Sepsis 2/2 to CAP - Sepsis resolved - Ceftriaxone and Azithromycin. - IVF @ LR 150 ml/hr - Procalcitonin 3.4 on admission - Vancomycin trough low, increased to 1.5 grams and Pharmacy to dose - Coagulase negative staph in blood cultures, will confirm findings with lab. - Staph Epidermidis present on cultures, will consult ID for further recommendations - Leukocytosis resolved - Influenza negative - Repeat CXR 03/09 showed improvement. - Repeat Procalcitonin 5.53 on 03/09 elevated from previous. - Repeat Procalcitonin pending this AM A-fib with RVR - Converted 18:40 on 03/09 - Started on Cardizem bolus and drip - Transitioned to Amiodarone drip per Dr. Cruz, appreciate recs - Anticipate transition from Lovenox to oral anticoagulant. - Anticipate oral amiodarone, but will defer to Dr. Cruz recs. Lactic Acidosis - resolved - Secondary to above DOMINIC - Likely resolved - Unknown baseline - Will treat with IVF and discontinue when appropriate Elevated BNP - No reported CHF history - ECHO showed EF 55-60%, Grade 1/3 Diastolic dysfunction. HTN - Hold home BP meds until BP returns to his baseline CAD - Continue home clopidogrel HLD - Continue Statin Disposition: Stable, will continue current plan of care. Likely be ready for discharge tomorrow. Addendum - Attending - Attending Attestation Date/Time: 03/10/18 0702 I personally evaluated the patient and discussed the management with Dr. Fofana. I agree with the History, Examination, Assessment and Plan documented above with any addition or exceptions noted below. Patient reports feeling well this morning. Continues on amiodarone drip but has converted to NSR as of last night. Cardiology on board and anticipate further recs now that he has converted. His blood cx continue to show possible staph bacteremia. Continue Vancomycin and will discuss case with ID once we have speciation. Awaiting repeat labs this morning to ensure improvement.
[2018-03-10 06:21] LABS: #Eosinphils 0.2 thou/uL (0.0-0.7); #Lymphocytes 1.2 thou/uL (1.20-3.40); #Monocytes 0.8 thou/uL (0.11-0.59); #Neutrophils 6.5 thou/uL (1.40-6.50); %Basophils 0.1 % (0.0-1.0); %Eosinophils 2.6 % (0.0-10.0); %Lymphocytes 13.5 % (21.0-51.0); %Monocytes 8.8 % (0.0-10.0); Hemoglobin 11.3 g/dL (14.0-18.0); Mean Corpuscular HGB CONC 33.8 g/dL (32.0-36.0); Mean Corpuscular Hemoglobin 30.3 pg (27.0-31.0); Mean Corpuscular Volume 89.7 fL (78.0-98.0); Mean Platelet Volume 7.9 fL (7.4-10.4); Platelet Count 144 thou/uL (130-400); RBC Distribution Width 13.4 % (11.5-14.5); Red Blood Cell (RBC) Count 3.74 mill/uL (4.70-6.10); White Blood Cell (WBC) Count 8.7 thou/uL (4.8-10.8)
--- NOTE | 2018-03-10 07:30 | EKG ---
Test Reason : Blood Pressure : / mmHG Vent. Rate : 146 BPM Atrial Rate : 084 BPM P-R Int : 000 ms QRS Dur : 076 ms QT Int : 296 ms P-R-T Axes : 000 -05 078 degrees QTc Int : 461 ms Atrial fibrillation with rapid ventricular response Nonspecific ST and T wave abnormality Abnormal ECG When compared with ECG of 07-MAR-2018 09:27, Atrial fibrillation has replaced Sinus rhythm Confirmed by MARY ALICE HERRERA ([id number]) on 03/10/2018 7:29:45 AM Referred By: Confirmed By:MARY ALICE HERRERA
--- NOTE | 2018-03-10 08:36 | PDOC.CTH ---
Cardiology Progress Note - Subjective He is doing well. He is currently back in sinus rhythm. - Objective Vital Signs Temp Pulse Resp BP Pulse Ox 03/10/18 07:20 98.6 F 75 22 H 146/72 H 03/10/18 03:52 96 03/10/18 02:52 100.1 F H 72 89 L 03/09/18 23:55 20 125/82 03/09/18 22:42 95 Weight 228 lb 11.2 oz 03/09/18 03/10/18 03/11/18 06:59 06:59 06:59 Intake Total 387.2 Output Total 300 300 Balance 87.2 -300 - Physical Examination General/Neuro: alert & oriented x3, NAD Neck: no JVD present Lungs: CTA, unlabored respirations Heart: RRR Abdomen: NT/ND Extremities: other: (no edema) - Telemetry Telemetry Rhythm: NSR - Labs Result Diagrams: 03/10/18 05:50 03/08/18 05:38 Troponin/CKMB Troponin I 0.010 ng/mL (< 0.028) 03/07/18 09:53 - Assessment/Plan 1. Paroxysmal afib 2. Staph bacteremia 3. Pneumonia 4. Hx of CVA PLAN: - Will stop amiodarone and start low dose BB - Full anticoagulation for stroke prophylaxis. - Will do Eliquis 5 mg BID once closer to discharge. - IV abx per primary team. - Will follow.
[2018-03-10] MEDS: Enoxaparin Sodium 100 MG/ML SYRINGE SC SCH ×2 (08:39→21:09)
[2018-03-10] MEDS: Saccharomyces boulardii 250 MG CAP PO SCH (08:39)
[2018-03-10] MEDS: Famotidine 20 MG TAB PO SCH ×2 (08:39→21:00)
[2018-03-10] MEDS: Ipratropium Oral Inhaler (200 INHALATIONS) INH SCH ×3 (10:01→18:48)
[2018-03-10 10:34] LABS: Hemoglobin 11.7 g/dL (14.0-18.0); Platelet Count 153 thou/uL (130-400)
[2018-03-10 10:57] LABS: Calc. Creatinine Clearance 118 mL/min (70-130); Estimated GFR-MDRD Greater than 90
[2018-03-10] MEDS: Vancomycin HCl 1.5 GM in Sodium Chloride 0.9% 250 ML 300 ML IVPB SCH ×2 (12:38→23:55)
--- NOTE | 2018-03-10 14:20 | PDOC.EVN ---
Event Note - Event Note Event Note: Spoke with Dr. Cole regarding the blood culture results. Culture results showed Staph Capitis and Staph Epidermidis. Dr. Cole would treat these results like a contaminant culture. He would not recommend treatment for this infection. Will await final cultures and anticipate discharge tomorrow with treatment for CAP.
[2018-03-10] MEDS: cefTRIAXone\\ROCEPHIN 1 GM in Sodium Chloride 0.9% 100 ML IVPB SCH (18:28)
[2018-03-10] MEDS: Azithromycin 500 MG in Sodium Chloride 0.9% 250 ML 250 ML IVPB SCH (20:40)
[2018-03-10] MEDS: Pravastatin Sodium 40 MG TAB PO SCH (20:59)
[2018-03-10] MEDS ORDERED: Losartan 25 MG TAB PO SCH (21:00)
[2018-03-10] MEDS ORDERED: Amlodipine 10 MG TAB PO SCH (21:00)
--- NOTE | 2018-03-11 06:08 | PDOC.FM ---
- Subjective Subjective: Pleasant 77 year old male seen at bedside this AM. Patient states he feels much improved again. He is ready to get home. He states that he was up and walking yesterday without any difficulty. Patient denies sob, chest pain, n/v/d, fevers , chills, or other acute changes. Patient states that he will follow up with Dr. Wade in the near future. No other complaints. - Objective MAR Reviewed: Yes Vital Signs & Weight: Vital Signs (12 hours) Temp Pulse Resp BP BP BP Pulse Ox 03/11/18 04:00 98.2 F 67 18 127/61 92 L 03/10/18 20:59 69 146/70 H 03/10/18 20:00 99.6 F 69 17 146/70 H 95 03/10/18 18:49 93 L 03/10/18 18:48 93 L Weight Weight 103.737 kg I&O: 03/09/18 03/10/18 03/11/18 06:59 06:59 06:59 Intake Total 387.2 350 Output Total 300 300 750 Balance 87.2 -300 -400 Result Diagrams: 03/11/18 04:29 03/10/18 10:22 Phys Exam - Physical Examination Constitutional: NAD HEENT: moist MMs Neck: supple, full ROM Respiratory: wheezing present Faint expiratory wheezes present. Improved from yesterday. Cardiovascular: RRR, no significant murmur Gastrointestinal: soft, non-tender, no distention, positive bowel sounds Musculoskeletal: no edema, pulses present Neurological: non-focal, moves all 4 limbs Psychiatric: A&O x 3 Skin: no rash, cap refill <2 seconds Dx/Plan (1) HTN (hypertension) Code(s): I10 - ESSENTIAL (PRIMARY) HYPERTENSION Status: Chronic (2) HLD (hyperlipidemia) Code(s): E78.5 - HYPERLIPIDEMIA, UNSPECIFIED Status: Chronic (3) Elevated brain natriuretic peptide (BNP) level Code(s): R79.89 - OTHER SPECIFIED ABNORMAL FINDINGS OF BLOOD CHEMISTRY Status : Acute (4) CAD (coronary artery disease) Code(s): I25.10 - ATHSCL HEART DISEASE OF [place] CORONARY ARTERY W/O ANG PCTRS Status: Chronic - Plan Plan: Sepsis 2/2 to CAP - Sepsis resolved - Received Cefepime and Vancomycin in ED - Ceftriaxone and Azithromycin during hospitalization - IVF discontinued - Procalcitonin 3.4 on admission - Staph Epidermidis present on cultures, consulted ID for further recommendations - Dr. Cole states likely contaminant and would not treat - Leukocytosis resolved - Influenza negative - Repeat CXR 03/09 showed improvement. A-fib with RVR - Converted 18:40 on 03/09 - Started on Cardizem bolus and drip without improvement - Transitioned to Amiodarone drip per Dr. Cruz, appreciate recs - Anticipate transition from Lovenox to oral anticoagulant. - Dr. Cruz initiated beta miguel with good control. - CHADSVASC score of 3 - HASBLED score of 2 Lactic Acidosis - resolved - Secondary to above DOMINIC - Likely resolved - Unknown baseline - IVF discontinued Elevated BNP - No reported CHF history - ECHO showed EF 55-60%, Grade 1/3 Diastolic dysfunction. HTN - Restarted home meds CAD - Continue home clopidogrel HLD - Continue Statin Disposition: Stable, patient is likely ready for discharge today. Addendum - Attending - Attending Attestation Date/Time: 03/11/18 [id number] I personally evaluated the patient and discussed the management with Dr. Fofana I agree with the History, Examination, Assessment and Plan documented above with any addition or exceptions noted below- Patient without complaints. Ready to go home. Afebrile VSS. A/P: 1) CAP- improved; plan to d/c home today with po abx. 2) Afib with RVR now resolved- contoinue low dose beta miguel as per cardiology and start eliquis for stroke prevention, 3) Lactic acidosis resolved. .
[2018-03-11 06:09] LABS: Band 4 % (5-11); Eosinophils 5 % (0-10); Lymphocytes 22 % (21-51); MDiff Complete? YES; Mean Corpuscular HGB CONC 33.6 g/dL (32.0-36.0); Mean Corpuscular Hemoglobin 30.2 pg (27.0-31.0); Mean Corpuscular Volume 90.1 fL (78.0-98.0); Mean Platelet Volume 8.2 fL (7.4-10.4); Monocytes 11 % (0-10); Neutrophil 56 % (42-75); PLT Morphology Comment Appears Adequate; Platelet Count 165 thou/uL (130-400); RBC Distribution Width 13.3 % (11.5-14.5); Reactive Lymphocytes 2 % (0-10); Red Blood Cell (RBC) Count 3.98 mill/uL (4.70-6.10); White Blood Cell (WBC) Count 7.6 thou/uL (4.8-10.8)
[2018-03-11] MEDS: guaiFENesin 200 MG TAB PO PRN (06:36)
[2018-03-11] MEDS: Benzonatate 100 MG CAP PO PRN (06:36)
[2018-03-11] MEDS: Ipratropium Oral Inhaler (200 INHALATIONS) INH SCH ×2 (07:31→10:01)
[2018-03-11 07:42] VITALS: BP 141/73; TEMP 98.8
[2018-03-11] MEDS: Famotidine 20 MG TAB PO SCH (08:41)
[2018-03-11] MEDS: Saccharomyces boulardii 250 MG CAP PO SCH (08:41)
[2018-03-11] MEDS ORDERED: Cefdinir 300 MG CAP PO SCH (09:00)
[2018-03-11] MEDS ORDERED: Apixaban 5 MG TAB PO SCH (09:00)
--- NOTE | 2018-03-12 05:21 | DIS ---
DATE OF ADMISSION: 03/07/2018 DATE OF DISCHARGE: 03/11/2018 RESIDENT: Dayo Fofana M.D. ADMITTING ATTENDING: Weston Chery MD DISCHARGE ATTENDING: Mary Jo Hendricks MD CONSULTATION: Cardiology, Dr. Cruz. PROCEDURES: 1. On 03/07/2018, the patient underwent a chest x-ray that showed hazy focal 6 cm area of abnormally increased pulmonary parenchymal opacity in the medial right lung base, proper "setting" is most consistent with infectious pneumonitis or aspiration, however, no underlying mass or lesion cannot be fully excluded. Clinical correlation is less essential. 2. On 03/07/2018, the patient underwent a brain CT that showed no acute intracranial abnormality, mild paranasal sinus disease. 3. On 03/08/2018, the patient underwent an echocardiogram that showed his ejection fraction is visually estimated at 55% to 60%, grade 1-3 diastolic dysfunction, mildly dilated left atrium, mildly enlarged right atrium, mild mitral regurgitation, and mild tricuspid regurgitation. 4. On 03/09/2018, the patient underwent a chest x-ray that showed resolving right basilar pneumonia. PRIMARY DIAGNOSES: 1. Sepsis secondary to pneumonia, resolved. 2. Atrial fibrillation with rapid ventricular response, now resolved. 3. Lactic acidosis, now resolved. 4. Hypertension. 5. Hyperlipidemia. 6. Elevated BNP. 7. Coronary artery disease. DISCHARGE MEDICATIONS: 1. Pravastatin 40 mg p.o. at bedtime. 2. Zofran 1 tablet sublingual q.4h p.r.n. 3. Losartan 100 mg p.o. at bedtime. 4. Valium 2 mg p.o. q.6h p.r.n. 5. Clopidogrel 75 mg p.o. at bedtime. 6. Norvasc 10 mg p.o. at bedtime. 7. Albuterol sulfate nebulizers inhaled q.6h. 8. Eliquis 5 mg p.o. b.i.d. 9. Azithromycin 250 mg p.o. daily for 4 days. 10. Tessalon Perles 100 mg p.o. q.4h for cough. 11. Omnicef 300 mg p.o. b.i.d. for 5 days. 12. Guaifenesin 200 mg p.o. q.4h p.r.n. 13. Atrovent HFA 1 puff inhaled q.i.d. for wheezing. 14. Metoprolol succinate 25 mg p.o. daily. Discontinue medications, none. HISTORY OF PRESENT ILLNESS AND HOSPITAL COURSE: This patient is a pleasant 77-year-old male with a past medical history of hypertension who presents from home from encouragement of his family for evaluation of his altered mental status. The patient states that the family member reported finding the patient down on the floor in the hallway and was unable to get up by himself. It is unsure if the patient fell or struck his head or if he just had a slid down. The patient does complain of increased malaise and cough over last 3 weeks, he most notably remembers thinking about going hunting. On Tuesday, he still did go hunting with his friends, but he felt bad and after that, he decided to go to the urgent care where he was told that he had asthma. The patient got a steroid shot and did not improve and he continue to deteriorate at home. During this hospitalization, the patient was found to meet sepsis criteria secondary to community-acquired pneumonia. Blood cultures were drawn, all laboratory values were drawn as well. He did have notable laboratory values of a procalcitonin on admission of 3.40, that point to sepsis, it actually increased to 5.53, and then decreased to 2.74. The patient also had white blood cell count on day of admission of 11.1, it trended up to 13.3, and then did trend down to 7.6 on day of discharge. The patient also had blood cultures that were drawn that grew out Staphylococcus epidermidis in one sample and then Staphylococcus capitis in one of 2 samples. Repeat blood cultures were negative to date and he also had negative influenza test. The patient remained afebrile during his entire hospitalization. His blood pressure after adequate fluid resuscitation remained normotensive. He did require oxygen via nasal cannula slightly during this hospitalization for borderline oxygen saturations from 88% to 92%, however, on day of discharge, he was weaned off that oxygen and was satting 90% on room air. The patient also with the elevated BNP was evaluated by echocardiogram essentially showed it to be unremarkable. On 03/09/2018 at around 3:30 in the morning, the patient was found to be tachycardic and he was found to be in atrial fibrillation with RVR. He was then initiated on a Cardizem bolus and drip without resolution. Cardiology was consulted and changed the patient over to an amiodarone drip. The patient then spontaneously converted back to normal sinus rhythm around 1840 hours on 03/09/2018. Dr. Cruz was the public information coordinator on the case, she recommended to start beta miguel and also oral anticoagulants. Those medications were initiated and the patient remained in sinus rhythm throughout the rest of the hospitalization. The patient otherwise continue to improve well, was discharged from the walking program as he was deemed successful and steady, and ready for discharge. Otherwise, the patient had no other complaints or complications at this hospitalization and will be discharged in appropriate condition. DISPOSITION: Stable. DISCHARGE INSTRUCTIONS: 1. Location: He will be discharged home under the care of himself and his family. 2. Diet: Will be as tolerated with heart healthy diet. 3. Restrictions: Activity will be as tolerated although we do caution him to take it easy over the next couple of weeks as he regained the strength. 4. Followup: Will be with his primary care provider Dr. Wade in the next [address] Cruz, with Cardiology in the next 2 to 3 weeks to further discuss his atrial fibrillation and other chronic comorbidities. Job ID: [id number]
== END 2018-03-11 11:22 | disposition home or self-care (01) | DRG 871 ==
LOC: ERS 09:22 → ERHOLD 10:20 → T4-B 16:58 → 2SW 03-09 04:08 → 2NO 03-09 13:15
PROVIDERS: ADMIT Student in an Organized Health Care Education/Training Program; ATTEND Student in an Organized Health Care Education/Training Program
DX: A41.9 Sepsis, unspecified organism (principal); J18.9 Pneumonia, unspecified organism; E87.2 Acidosis; N17.9 Acute kidney failure, unspecified; I10 Essential (primary) hypertension; E78.5 Hyperlipidemia, unspecified; I25.10 Atherosclerotic heart disease of native coronary artery without angina pectoris; Z85.47 Personal history of malignant neoplasm of testis; R79.89 Other specified abnormal findings of blood chemistry; I48.0 Paroxysmal atrial fibrillation; Z86.73 Personal history of transient ischemic attack (TIA), and cerebral infarction without residual deficits
CPT/HCPCS: 36415; 70450; 71045; 71046; 80048; 80053; 80076; 80202; 81003; 81015; 82550; 82565; 83605; 83735; 83880; 84145; 84443; 84484; 85025; 87040; 87149; 87804; 93005; 93010; 93306; 94640; 94760; 96361; 96365; 96375; J0456; J0692; J0696; J1100; J1650; J2405; J3370; J7050; J7070; J7620

== ENCOUNTER 2018-08-10 07:18 | Outpatient (CLI) | payer MEDICARE ==
--- NOTE | 2018-08-10 11:42 | NM ---
HEPATOBILIARY SCAN: HISTORY: Disease of gallbladder, unspecified. No gallstones on ultrasound of 06/23/2017. RADIOPHARMACEUTICAL: 5.4 mCi Technetium 99m-mebrofenin injected intravenously. FINDINGS: There is good tracer extraction by the liver with prompt excretion into the biliary tract and small b owel loops and normal filling of the gallbladder. The calculated gallbladder ejection fraction follo wing an oral fatty meal measures 48%. IMPRESSION: Normal exam. POS: ELSIE
== END 2018-08-10 07:19 | disposition home or self-care (01) ==
LOC: NM 07:18
PROVIDERS: ATTEND Family Medicine
DX: K82.9 Disease of gallbladder, unspecified (principal)
CPT/HCPCS: 78227; A9537

== ENCOUNTER 2018-08-18 08:18 | Outpatient (CLI) | payer MEDICARE ==
[2018-08-18] MEDS ORDERED: ISOVUE-370 76%-LOCM 1 ML ONE (10:42)
--- NOTE | 2018-08-18 11:37 | CT ---
CTA ABDOMEN AND PELVIS WITHOUT CONTRAST CTA ABDOMEN AND PELVIS WITH IV CONTRAST AND 3D POSTPROCESSING: Date: 08/18/18 HISTORY: Mesenteric ischemia, abdominal pain and nausea. Treated testicular cancer in the past. FINDINGS: Comparison made with CT abdomen and pelvis of 07/12/17. The lung bases are unremarkable. The 5.5 cm cystic mass in the inferior posterior aspect of the spleen is stable. No calcified gallsto cholo are seen. No calculi noted in the kidneys, ureters, or the urinary bladder. The pancreas, adrenal glands, and kidneys are normal. No hypervascular liver lesions are identified. No free air, free fluid, or lymphadenopathy seen in the abdomen or pelvis. There are degenerative dave nges in the spine. There are vascular calcifications without evidence of aneurysmal dilatation of the abdominal aorta. T here are short segment dissections involving the infrarenal abdominal aorta and the right common cherri c artery. There is good flow noted in the celiac axis, SMA, and ROWENA. There is mild stenosis at the or igins of the celiac axis, SMA, and the right renal artery. The small bowel loops are not abnormally dilated. There is sigmoid diverticulosis without evidence of diverticulitis. IMPRESSION: 1. 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 2. 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 3. 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 4. Sigmoid diverticulosis. POS: TPC
== END 2018-08-18 08:19 | disposition home or self-care (01) ==
LOC: BICCT 08:18
PROVIDERS: ATTEND Family Medicine
DX: K55.059 Acute (reversible) ischemia of intestine, part and extent unspecified (principal); K57.30 Diverticulosis of large intestine without perforation or abscess without bleeding; R16.1 Splenomegaly, not elsewhere classified; I70.1 Atherosclerosis of renal artery; K55.1 Chronic vascular disorders of intestine
CPT/HCPCS: 74174; 82565; Q9966

== ENCOUNTER 2018-12-26 08:30 | Outpatient (CLI) | payer MEDICARE ==
--- NOTE | 2018-12-26 12:24 | RAD ---
Small bowel exam HISTORY: Abdominal pain. Cough. FINDINGS: Normal mucosal pattern of the small bowel. Normal distribution of bowel loops. Normal calib er. Terminal ileum was reached at 30 minutes and has a normal appearance. Small amount of contrast within the distal esophagus is apparent at on the 15 minute image. No significant contrast in the esophagus was apparent on fluoroscopy. IMPRESSION: Rapid small bowel transit. No acute small bowel abnormalities are evident. Small amount of gastroesophageal reflux documented.
== END 2018-12-26 08:31 | disposition home or self-care (01) ==
LOC: RAD 08:30
PROVIDERS: ATTEND Internal Medicine
DX: R10.13 Epigastric pain (principal); R05 Cough; K21.9 Gastro-esophageal reflux disease without esophagitis
CPT/HCPCS: 74250

== ENCOUNTER 2019-11-19 15:16 | Emergency (ER) | payer MEDICARE ==
[2019-11-19 15:57] LABS: #Basophils 0.1 thou/uL (0.0-0.2); #Eosinphils 0.2 thou/uL (0.0-0.7); #Lymphocytes 2.7 thou/uL (1.20-3.40); #Monocytes 0.6 thou/uL (0.11-0.59); #Neutrophils 3.2 thou/uL (1.40-6.50); %Basophils 1.4 % (0.0-1.0); %Eosinophils 2.3 % (0.0-10.0); %Lymphocytes 39.8 % (21.0-51.0); %Monocytes 8.7 % (0.0-10.0); %Neutrophils 47.9 % (42.0-75.0); Mean Corpuscular Hemoglobin 30.1 pg (27.0-31.0); Mean Corpuscular Volume 88.5 fL (78.0-98.0); Mean Platelet Volume 7.7 fL (7.4-10.4); Platelet Count 208 thou/uL (130-400); RBC Distribution Width 12.8 % (11.5-14.5); Red Blood Cell (RBC) Count 4.66 mill/uL (4.70-6.10); White Blood Cell (WBC) Count 6.7 thou/uL (4.8-10.8)
[2019-11-19 16:19] LABS: ALT (SGPT) 7 U/L (8-55); AST (SGOT) 12 U/L (5-34); Albumin 3.8 g/dL (3.4-4.8); Alkaline Phosphatase 57 U/L (40-110); Anion Gap 14 mmol/L (10-20); BUN (Urea Nitrogen) 9 mg/dL (8.4-25.7); Bilirubin, Total 0.6 mg/dL (0.2-1.2); CK (CPK) 96 U/L (30-200); Calc. Creatinine Clearance 0 mL/min (70-130); Calcium 8.5 mg/dL (7.8-10.44); Carbon Dioxide 22 mmol/L (23-31); Chloride 105 mmol/L (98-107); Estimated GFR-MDRD 77; Globulin 2.6 g/dL (2.4-3.5); Glucose 100 mg/dL (83-110); Protein, Total 6.4 g/dL (5.8-8.1); Sodium 137 mmol/L (136-145)
[2019-11-19] MEDS ORDERED: Amlodipine 5 MG TAB ONE (18:02)
== END 2019-11-19 18:14 | disposition home or self-care (01) ==
LOC: ERS 15:16
DX: I10 Essential (primary) hypertension (principal); E78.5 Hyperlipidemia, unspecified; E78.00 Pure hypercholesterolemia, unspecified; I48.91 Unspecified atrial fibrillation; Z79.01 Long term (current) use of anticoagulants; Z79.899 Other long term (current) drug therapy
CPT/HCPCS: 36415; 80053; 82550; 84484; 85025; 93005

== ENCOUNTER 2020-08-21 12:57 | Outpatient (CLI) | payer MEDICARE | END 2020-08-21 12:58 | disposition home or self-care (01) | LOC: BICCT 12:57 | PROVIDERS: ATTEND Family Medicine | DX: J18.9 Pneumonia, unspecified organism (principal); R59.1 Generalized enlarged lymph nodes; J43.9 Emphysema, unspecified | CPT/HCPCS: 71260; 82565 ==